=== PATIENT | female | born 1970 | race Caucasian/White ===

== ENCOUNTER 2022-12-29 18:06 | Emergency (ER) | payer SELFPAY ==
[~2022-12-29] VITALS: Ht 172.7 cm; Wt 75.0 kg
[2022-12-29 18:07] VITALS: BP 157/66; PULSE 98; RESP 16; TEMP 98.2; O2SAT 100
[2022-12-29] MEDS ORDERED: METOCLOPRAMIDE HCL 10MG/2ML VIAL IV ONE (19:00)
[2022-12-29] MEDS ORDERED: DIPHENHYDRAMINE 50MG/ML VIAL IV ONE (19:00)
[2022-12-29] MEDS ORDERED: SODIUM CHLORIDE 0.9% 1,000 ML IV ONE (19:00)
[2022-12-29] MEDS ORDERED: KETOROLAC 15MG/ML VIAL IV ONE (19:00)
[2022-12-29] MEDS ORDERED: IBUP-2028 MT (21:08)
== END 2022-12-29 21:38 | disposition home or self-care (01) ==
LOC: ER 18:10
DX: G43.909 Migraine, unspecified, not intractable, without status migrainosus (principal); Z88.0 Allergy status to penicillin; Z88.1 Allergy status to other antibiotic agents
CPT/HCPCS: 96361; 96374; 96375; 99284; J1200; J1885; J2765; J7030; Z7610